=== PATIENT | male | born 1975 | race African-American/Black ===

== ENCOUNTER 2018-04-14 23:40 | Emergency (ER) | payer OTHER ==
[~2018-04-14] VITALS: Ht 177.8 cm; Wt 72.6 kg
[2018-04-15 00:07] VITALS: BP 123/61
== END 2018-04-15 02:22 | disposition home or self-care (01) ==
LOC: EEVIPCON 04-15 00:01 → ER 04-15 00:01
DX: S01.112A Laceration without foreign body of left eyelid and periocular area, initial encounter (principal); S05.12XA Contusion of eyeball and orbital tissues, left eye, initial encounter; M54.2 Cervicalgia; Y08.89XA Assault by other specified means, initial encounter; Y93.89 Activity, other specified; Y99.8 Other external cause status; Y92.89 Other specified places as the place of occurrence of the external cause
CPT/HCPCS: 70450; 70486; 72125; 73030